=== PATIENT | male | born 1940 ===

== ENCOUNTER 2024-09-19 06:10 | Day surgery (SDC) | payer OTHER, SELFPAY ==
[2024-09-04 11:28] LABS: Hematocrit 37.1 % (39.0-52.0); Hemoglobin 12.2 g/dL (13.0-18.0); Mean Corp Hgb Conc. 32.9 g/dL (33.0-37.0); Mean Corpuscular Volume 91.2 fL (80.0-94.0); Red Blood Cell Count 4.07 10^6/uL (4.70-6.10); Red Cell Dist. Width 13.4 % (11.5-14.5); White Blood Cell Count 5.7 10^3/uL (4.8-10.8)
[2024-09-04 11:31] LABS: INR 1.03
[2024-09-04 11:32] LABS: APTT 23.4 Sec (23.4-35.0)
[2024-09-04 13:02] LABS: ALT (SGPT) 22 U/L (0-50); AST (SGOT) 33 U/L (17-59); Albumin 4.9 g/dl (3.5-5.0); Alkaline Phosphatase 66 U/L (38-126); Blood Urea Nitrogen 31 mg/dl (9-20); Calcium 9.5 mg/dl (8.4-10.2); Carbon Dioxide 28 mmol/L (22-30); Chloride 103 mmol/L (98-107); Glucose 127 mg/dl (70-99); Potassium 4.8 mmol/L (3.5-5.1); Sodium 143 mmol/L (135-145); Total Bilirubin 0.6 mg/dl (0.2-1.3); Total Protein 7.4 g/dl (6.3-8.2); eGFR 46.19
[2024-09-04 13:58] VITALS: BMI 27.7
[2024-09-19] VITALS (8 sets, daily range): BP systolic 106–157; BP diastolic 60–71; BMI 27.7
[2024-09-19 07:14] LABS: Glucose - Point of Care 147 mg/dl (70-99)
[2024-09-19] MEDS: NORMOSOL-R/PLASMALYTE-A 1000 IV (07:15)
[2024-09-19 08:16] LABS: Glucose - Point of Care 139 mg/dl (70-99)
== END 2024-09-19 10:00 | disposition home or self-care (01) ==
LOC: SDS 06:10
PROVIDERS: ATTENDING PHYSICIAN Otolaryngology; FAMILY PHYSICIAN Internal Medicine
DX: J38.3 Other diseases of vocal cords (principal); R49.0 Dysphonia; K21.9 Gastro-esophageal reflux disease without esophagitis
CPT/HCPCS: 31571; 36415; 71046; 80053; 82962; 85027; 85610; 85730; 87070; C1878